=== PATIENT | female | born 1950 | race Caucasian/White ===

== ENCOUNTER 2017-03-03 12:14 | Day surgery (SDC) | payer OTHER ==
[2017-02-28 10:30] VITALS: BMI 30.9
[2017-03-03] MEDS ORDERED: PROPOFOL 20 ML ONE (13:39)
[2017-03-03] MEDS ORDERED: MIDAZOLAM HCL 2 MG/2 ML SINGLE DOSE VIAL ONE (13:42)
[2017-03-03] MEDS ORDERED: SODIUM BICARBONATE 8.4% 50 MEQ/50 ML DISP.SYRIN IV ONE (14:43)
[2017-03-03] MEDS ORDERED: TRIAMCINOLONE ACET 40MG/1ML VIAL IM ONE (14:43)
[2017-03-03] MEDS ORDERED: LIDOCAINE HCL 1%, 10 MG/ML (50 mL VIAL) INF ONE (14:43)
[2017-03-03] MEDS ORDERED: IOHEXOL 180 MG/1 ML ML IJ ONE (14:43)
[2017-03-03 15:30] VITALS: TEMP 98
[2017-03-03 15:49] VITALS: BP 136/80; PULSE 56
--- NOTE | 2017-03-04 08:25 | OP ---
DATE OF OPERATION: 03/03/2017 PROCEDURE PERFORMED: Lumbar Epidural Steroid Injection. DIAGNOSIS/INDICATION: Lower extremity radiculopathy. CONSENT: The procedure was explained and all questions answered. Risks discussed include bleeding, allergy, infection, and inadvertent puncture of the dura. Informed, written consent was obtained. TOWEL DISTRIBUTOR: Carlos Scales MD TECHNIQUE: The patient was prepped and draped in the usual sterile fashion. Using fluoroscopic guidance, the L3-L4 interspinous space was localized, and the overlying skin and subcutaneous soft tissues were locally anesthetized with 1% Lidocaine. A 20-gauge epidural needle was advanced into the epidural space using [id number] technique. Epidurogram was performed using 5 mL Omnipaque contrast injected into the epidural space to verify needle tip position and to visualize epidural space and nerve root in AP and lateral views. Contrast spread was seen. A lateral spot radiograph was obtained. Depo-Medrol of 40 mg and 2 mL normal saline were injected into the epidural space and the needle was removed. The procedure was well tolerated. There were no immediate complications. Nonionic contrast was used because of the possibility of intrathecal administration. POSTOPERATIVE DIAGNOSIS: Lumbar epidural steroid injection for lumbar radiculopathy. CARLOS SCALES M.D. LEONOR/[id number]
== END 2017-03-03 15:40 | disposition home or self-care (01) ==
LOC: FASU 12:14
PROVIDERS: ATTEND Pain Medicine Interventional Pain Medicine
PROC: B01B1ZZ Fluoroscopy of Spinal Cord using Low Osmolar Contrast (ICD-10-PCS; 2017-03-03)
PROC: 3E0R33Z Introduction of Anti-inflammatory into Spinal Canal, Percutaneous Approach (ICD-10-PCS; principal; 2017-03-03 13:30)
DX: M54.16 Radiculopathy, lumbar region (principal)
CPT/HCPCS: 72100-TC; 76000-TC

== ENCOUNTER 2017-05-05 11:51 | Day surgery (SDC) | payer OTHER ==
[2017-04-28 10:48] VITALS: BMI 30.7
[2017-05-05] MEDS ORDERED: SODIUM CHLORIDE 0.9% P/F 10 ML VIAL IJ ONE (13:14)
[2017-05-05] MEDS ORDERED: SODIUM BICARBONATE 8.4% 50 MEQ/50 ML VIAL ONE (13:14)
[2017-05-05] MEDS ORDERED: TRIAMCINOLONE ACET 40MG/1ML VIAL ONE (13:14)
[2017-05-05] MEDS ORDERED: LIDOCAINE HCL 1%, 10 MG/ML (20ML VIAL) ONE (13:14)
[2017-05-05] MEDS ORDERED: MIDAZOLAM HCL 2 MG/2 ML SINGLE DOSE VIAL ONE (13:20)
[2017-05-05] MEDS ORDERED: PROPOFOL 20 ML ONE ×3 (14:22)
[2017-05-05] MEDS ORDERED: oxyCODONE HCL 5 MG TABLET PO PRN (14:44)
[2017-05-05] MEDS ORDERED: ONDANSETRON 4 MG/2 ML VIAL IVPUSH PRN (14:44)
[2017-05-05] MEDS ORDERED: LACTATED RINGERS SOLUTION 1,000 ML IV SCH (14:45)
[2017-05-05 14:57] VITALS: TEMP 97.8
[2017-05-05 17:18] VITALS: BP 123/76; PULSE 76
--- NOTE | 2017-05-06 12:45 | OP ---
DATE OF OPERATION: 05/05/2017 PROCEDURE PERFORMED: Lumbar Epidural Steroid Injection. DIAGNOSIS/INDICATION: Lower extremity radiculopathy. CONSENT: The procedure was explained and all questions answered. Risks discussed include bleeding, allergy, infection, and inadvertent puncture of the dura. Informed, written consent was obtained. HYDROLOGY TEACHER: Carlos Scales MD TECHNIQUE: The patient was prepped and draped in the usual sterile fashion. Using fluoroscopic guidance, the L3-L4 interspinous space was localized, and the overlying skin and subcutaneous soft tissues were locally anesthetized with 1% Lidocaine. A 20-gauge epidural needle was advanced into the epidural space using [id number] technique. Epidurogram was performed using 5 mL Omnipaque contrast injected into the epidural space to verify needle tip position and to visualize epidural space and nerve root in AP and lateral views. Contrast spread was seen. A lateral spot radiograph was obtained. Depo-Medrol of 40 mg and 2 mL normal saline were injected into the epidural space and the needle was removed. The procedure was well tolerated. There were no immediate complications. Nonionic contrast was used because of the possibility of intrathecal administration. POSTOPERATIVE DIAGNOSIS: Lumbar epidural steroid injection for lumbar radiculopathy. CARLOS SCALES M.D. LEONOR/[id number]
== END 2017-05-05 16:15 | disposition home or self-care (01) ==
LOC: FASU 11:51
PROVIDERS: ATTEND Pain Medicine Interventional Pain Medicine
PROC: B01BZZZ Fluoroscopy of Spinal Cord (ICD-10-PCS; 2017-05-05)
PROC: 3E0R33Z Introduction of Anti-inflammatory into Spinal Canal, Percutaneous Approach (ICD-10-PCS; principal; 2017-05-05 14:28)
DX: M54.16 Radiculopathy, lumbar region (principal)
CPT/HCPCS: 72100-TC; 76000-TC; 94760

== ENCOUNTER 2018-05-04 12:05 | Day surgery (SDC) | payer OTHER, MEDICARE ==
[2018-04-28 11:13] VITALS: BMI 32.3
[2018-05-04] MEDS ORDERED: SODIUM CHLORIDE 0.9% P/F 10 ML VIAL IJ ONE (13:27)
[2018-05-04] MEDS ORDERED: LIDOCAINE HCL 1%, 10 MG/ML (20ML VIAL) ONE (13:27)
[2018-05-04] MEDS ORDERED: SODIUM BICARBONATE 8.4% 50 MEQ/50 ML VIAL ONE (13:27)
[2018-05-04] MEDS ORDERED: TRIAMCINOLONE ACET 40MG/1ML VIAL ONE (13:27)
[2018-05-04] MEDS ORDERED: ONDANSETRON 4 MG/2 ML VIAL ONE (14:04)
[2018-05-04] MEDS ORDERED: MIDAZOLAM HCL 2 MG/2 ML SINGLE DOSE VIAL ONE ×2 (14:04)
[2018-05-04] MEDS ORDERED: PROPOFOL 20 ML ONE ×2 (14:04→14:11)
[2018-05-04 15:27] VITALS: BP 138/85; PULSE 65; TEMP 98
--- NOTE | 2018-05-04 20:51 | OP ---
DATE OF OPERATION: 05/04/2018 PROCEDURE PERFORMED: Lumbar Epidural Steroid Injection. DIAGNOSIS/INDICATION: Lower extremity radiculopathy. CONSENT: The procedure was explained and all questions answered. Risks discussed include bleeding, allergy, infection, and inadvertent puncture of the dura. Informed, written consent was obtained. CAREER SPECIALIST: Carlos Scales MD TECHNIQUE: The patient was prepped and draped in the usual sterile fashion. Using fluoroscopic guidance, the L3-4 interspinous space was localized, and the overlying skin and subcutaneous soft tissues were locally anesthetized with 1% Lidocaine. A 20-gauge epidural needle was advanced into the epidural space using [id number] technique. Epidurogram was performed using 5 mL Omnipaque contrast injected into the epidural space to verify needle tip position and to visualize epidural space and nerve root in AP and lateral views. Contrast spread was seen. A lateral spot radiograph was obtained. Depo-Medrol of 40 mg and 2 mL normal saline were injected into the epidural space and the needle was removed. The procedure was well tolerated. There were no immediate complications. Nonionic contrast was used because of the possibility of intrathecal administration. POSTOPERATIVE DIAGNOSIS: Lumbar epidural steroid injection for lumbar radiculopathy. CARLOS SCALES M.D. [id number]
== END 2018-05-04 15:28 | disposition home or self-care (01) ==
LOC: FASU 12:05
PROVIDERS: ATTEND Pain Medicine Interventional Pain Medicine
PROC: B01BZZZ Fluoroscopy of Spinal Cord (ICD-10-PCS; 2018-05-04)
PROC: 3E0R33Z Introduction of Anti-inflammatory into Spinal Canal, Percutaneous Approach (ICD-10-PCS; principal; 2018-05-04 14:29)
DX: M54.16 Radiculopathy, lumbar region (principal)
CPT/HCPCS: 72100-TC-FY; 76000-TC-FY

== ENCOUNTER 2018-09-28 11:26 | Day surgery (SDC) | payer OTHER, MEDICARE ==
[2018-09-18 11:23] VITALS: BMI 32.3
[2018-09-28] MEDS ORDERED: LIDOCAINE 1% P/F 10 MG/ML VIAL ONE (12:57)
[2018-09-28] MEDS ORDERED: TRIAMCINOLONE ACET 40MG/1ML VIAL ONE (12:57)
[2018-09-28] MEDS ORDERED: SODIUM BICARBONATE 8.4% 50 MEQ/50 ML VIAL ONE (12:57)
[2018-09-28] MEDS ORDERED: SODIUM CHLORIDE 0.9% P/F 10 ML VIAL IJ ONE (12:58)
[2018-09-28] MEDS ORDERED: LIDOCAINE HCL/PF 2% SDV 5ML VIAL ONE (13:26)
[2018-09-28] MEDS ORDERED: PROPOFOL 20 ML ONE (13:26)
[2018-09-28 14:14] VITALS: TEMP 98
[2018-09-28 15:26] VITALS: BP 134/85; PULSE 66
--- NOTE | 2018-09-28 22:29 | OP ---
DATE OF OPERATION: 09/28/2018 PROCEDURE PERFORMED: Lumbar Epidural Steroid Injection. DIAGNOSIS/INDICATION: Lower extremity radiculopathy. CONSENT: The procedure was explained and all questions answered. Risks discussed include bleeding, allergy, infection, and inadvertent puncture of the dura. Informed, written consent was obtained. CABINET WORKER: Carlos Scales MD TECHNIQUE: The patient was prepped and draped in the usual sterile fashion. Using fluoroscopic guidance, the L3-4 interspinous space was localized, and the overlying skin and subcutaneous soft tissues were locally anesthetized with 1% Lidocaine. A 20-gauge epidural needle was advanced into the epidural space using [id number] technique. Epidurogram was performed using 5 mL Omnipaque contrast injected into the epidural space to verify needle tip position and to visualize epidural space and nerve root in AP and lateral views. Contrast spread was seen. A lateral spot radiograph was obtained. Depo-Medrol of 40 mg and 2 mL normal saline were injected into the epidural space and the needle was removed. The procedure was well tolerated. There were no immediate complications. Nonionic contrast was used because of the possibility of intrathecal administration. POSTOPERATIVE DIAGNOSIS: Lumbar epidural steroid injection for lumbar radiculopathy. CARLOS SCALES M.D. LEONOR/[id number]
== END 2018-09-28 14:30 | disposition home or self-care (01) ==
LOC: FASU 11:26
PROVIDERS: ATTEND Pain Medicine Interventional Pain Medicine
PROC: B01BYZZ Fluoroscopy of Spinal Cord using Other Contrast (ICD-10-PCS; 2018-09-28)
PROC: 3E0R33Z Introduction of Anti-inflammatory into Spinal Canal, Percutaneous Approach (ICD-10-PCS; principal; 2018-09-28 13:36)
DX: M54.16 Radiculopathy, lumbar region (principal)
CPT/HCPCS: 72100-TC-FY; 76000-TC-FY